=== PATIENT | male | born 1985 | race Caucasian/White ===

== ENCOUNTER 2016-07-31 20:35 | Emergency (ER) | payer BC, MEDICAID ==
[2016-07-31 21:36] LABS: Hematocrit 44.6 % (42.0-52.0); Hemoglobin 15.5 gm/dL (13.5-18.0); Mean Cell Volume 85.9 fl (78-100); Mean Corpuscular Hemoglobin 29.9 pg (27-31); Mean Corpuscular Hgb Conc 34.8 g/dl (32-36); Mean Platelet Volume 9.2 fl (6.0-9.5); Neutrophil # 5.2 K/mm3 (1.3-6.0); Neutrophil % 62.5 % (42-75.0); Platelet Count 270 K/mm3 (150-450); Red Blood Count 5.19 M/mm3 (4.7-6.0); Red Cell Distribution Width 13.1 % (11.5-14.0); White Blood Count 8.4 K/mm3 (4.0-10.5)
--- NOTE | 2016-07-31 21:37 | ERNOTE ---
Psychological HPI - General Chief Complaint: Psychiatric Problem Source: patient Exam Limitations: no limitations - Immun/Allergies/Home Medications Allergies/Adverse Reactions: Allergies No Known Allergies Allergy (Verified 12/14/12 01:12) Home Medications: HOME MEDICATIONS NK [No Home Medication] 07/31/16 [Last Taken Unknown] - History of Present Illness Narrative: Pt states has been on medications previously but lost contact with doctor when he was incarcerated. feeling more depressed and wanting to get back on medications. No suicidal ideations at this time Time Seen by Provider: 07/31/16 21:34 Arrived by: private car Onset/duration: gradual onset Intent: prior thoughts of suicide - - none at this time Situational Problems: work, legal problems Associated Symptoms: depressed Review of Systems - Review of Systems Constitutional: Absent: recent illness EYE: Present: no symptoms reported ENT: Present: no symptoms reported Respiratory: Present: no symptoms reported Cardiology: Present: no symptoms reported Gastrointestinal/Abdominal: Present: no symptoms reported Genitourinary: Present: no symptoms reported Musculoskeletal: Present: no symptoms reported Skin: Present: no symptoms reported Neurological: Present: anxiety, emotional problems Endocrine: Present: no symptoms reported Hematologic/Lymphatic: Present: no symptoms reported Psych: Present: no symptoms reported - Patient's Past Medical History Patient History - Medical: Anxiety, Depression Patient History - Cardiac/Respiratory: No pertinent hx Patient History - Cancer: No Hx of Cancer Patient History - Other: None - Social History Living Situations: home Abuse History: Hx of Substance Use, Hx -Substance Use Tx Psych History: Psychiatric Hx, Hx of Anxiety, Hx of Depression, Hx of Bipolar Disorder, Hx of Psychiatric Tx, Current tx/ever been on anti-depressants or anti -anxiety meds Smoking Status: Current every day smoker Have you smoked in the past 12 months: No Do you dip or chew tobacco: No Patient requests Smoking Cessation Consult: No Initiate information on Smoking Cessation: No Alcohol Use: occasionally Drug Use: marijuana, meth, other - Immunizations Immunizations Up to Date: No Hx Pneumococcal Vaccination: No History of Influenza Vaccine: No Physical Exam - Physical Exam General Appearance: Present: wd/wn, alert, no apparent distress, anxious Eye Exam: Normal inspection: bilateral, PERRL: bilateral, EOMI: bilateral Ears, Nose, Throat: Present: normal ENT inspection, hearing grossly normal Neck: Present: normal inspection, nontender Respiratory: Present: no respiratory distress, normal breath sounds, no accessory muscle use, lungs clear Cardiovascular/Chest: Present: regular rate, rhythm, no murmur, normal peripheral pulses Gastrointestinal/Abdominal: Present: normal bowel sounds, nontender, soft Back Exam: Present: normal range of motion Extremity Exam: Present: normal inspection, non-tender, no edema, normal range of motion Neurological Exam: Present: alert, oriented, normal mood/affect, no motor/ sensory deficits Skin Exam: Present: normal color, warm/dry Lymphatic Exam: Present: no adenopathy ED Progress - Results and Orders Patient's Lab Results:: I have reviewed the patient's lab results. Results and Orders: Laboratory Tests 07/31/16 07/31/16 07/31/16 21:20 21:20 22:12 WBC 8.4 Hgb 15.5 Hct 44.6 Plt Count 270 Sodium 139 Potassium 3.5 Chloride 103 Carbon Dioxide 29.6 Anion Gap 9.9 BUN 14 Creatinine 1.38 Est GFR (Non-Af Amer) 63 Random Glucose 104 Calcium 9.1 Total Bilirubin 0.6 AST 18 ALT 37 Alkaline Phosphatase 69 Total Protein 7.5 Albumin 3.8 TSH 1.339 Urine Color Yellow Urine Appearance Clear Urine pH 6.0 Ur Specific [place] 1.010 Urine Protein Negative Urine Glucose (UA) Negative Urine Ketones Negative Urine Blood Negative Urine Nitrate Negative Urine Bilirubin Negative Urine Urobilinogen Normal Ur Leukocyte Esterase Negative Urine RBC None seen Urine WBC None seen Ur Epithelial Cells None seen Urine Bacteria None seen Urine Culture Comments No culture indicated Salicylates 2.9 Urine Opiates Screen Acetaminophen Less than 0.2 L Barbiturate Screen Ur Phencyclidine Scrn Urine Amphetamine U Benzodiazepines Scrn Urine Cocaine Screen Urine Marijuana (THC) Ethyl Alcohol Less than 3.0 07/31/16 Unknown WBC Hgb Hct Plt Count Sodium Potassium Chloride Carbon Dioxide Anion Gap BUN Creatinine Est GFR (Non-Af Amer) Random Glucose Calcium Total Bilirubin AST ALT Alkaline Phosphatase Total Protein Albumin TSH Urine Color Urine Appearance Urine pH Ur Specific [place] Urine Protein Urine Glucose (UA) Urine Ketones Urine Blood Urine Nitrate Urine Bilirubin Urine Urobilinogen Ur Leukocyte Esterase Urine RBC Urine WBC Ur Epithelial Cells Urine Bacteria Urine Culture Comments Salicylates Urine Opiates Screen Negative Acetaminophen Barbiturate Screen Negative Ur Phencyclidine Scrn Negative Urine Amphetamine Positive H U Benzodiazepines Scrn Negative Urine Cocaine Screen Negative Urine Marijuana (THC) Positive H Ethyl Alcohol - Vital Signs Patient's Vital Signs:: I have reviewed the patient's vital signs. Vital Signs: Vital Signs 07/31/16 20:52 Temperature 36.7 C Pulse Rate 117 H Respiratory 14 Rate Blood Pressure 156/111 O2 Sat by Pulse 96 Oximetry - Progress/Reassessment Chief Complaint: Psychiatric Problem Progress Note-Subjective: 08/01/16 02:10 Pt was seen by [facility] social security assessor Cele Licona. She does not feel like he is an immediate threat to himself or others but that he has many at risk behaviors that he needs help with. He is willing to make contact tomorrow with [facility] on an OP basis Departure Clinical Impression: Anxiety Depression Qualifiers: Depression Type: reactive depression Qualified Code(s): F32.9 - Major depressive disorder, single episode, unspecified - Departure Disposition: Home Follow Up Needed Condition: Fair Instructions: Stimulant Use Disorder-Amphetamines, Finding Treatment for Addiction Additional Instructions: Call the crisis number if you need help after hours. Follow up with your regular doctor as soon as possible.
--- OUTSIDE RECORDS SUMMARY | 2016-07-31 21:49 | XMS REPORT | Continuity of Care Document ---
:1985 Author Organization [facility] ([facility]) Address [address] [place] [address] Phone [phone] Care Team Providers Name Role Phone Provider, No-Primary Care Primary Care Provider Unavailable Source Comments This disclosure is being made pursuant to the Care Everywhere program, applicable federal and state laws, and may not contain all informaitonavailable regarding this patient.[facility] ([facility]) Active Allergies and Adverse Reactions No Known Allergies Current Medications Prescription Sig. Disp. Refills Start Date End Date Status multivitamin capsule Take 1 Cap by Active mouth daily. lithium carbonate 300 mg Take 300 mg by Active capsule mouth 2 times daily with meals. FLUoxetine (PROZAC) 40 mg Take 40 mg by Active capsule mouth daily. Active Problems Problem Noted Date Multiple lipomas 04/20/2013 HLD (hyperlipidemia) 12/14/2012 Elevated serum creatinine 12/14/2012 Smoking 12/12/2012 Eye twitch 12/12/2012 Cyst, face 12/11/2012 Abnormal tympanic membrane 12/11/2012 Social History Tobacco Use Types Packs/Day Years Used Date Current Every Day Smoker Cigarettes 0.25 10 Smokeless Tobacco: Never Used Tobacco Cessation:Ready to Quit: No; Counseling Given: No Comments: Alcohol Use Drinks/Week oz/Week Comments Yes about 6 beers per month Last Filed Vital Signs Vital Sign Reading Time Taken Blood Pressure 153/92 01/07/2013 1:05 PM CDT Pulse 68 01/07/2013 1:05 PM CDT Temperature 36 C (96.8 F) 12/11/2012 2:33 PM CDT Respiratory Rate - - Height 1.93 m (6' 3.98") 01/07/2013 1:05 PM CDT Weight 121.564 kg (268 lb) 01/07/2013 1:05 PM CDT Body Mass Index 32.64 01/07/2013 1:05 PM CDT Oxygen Saturation - - Plan of Care Health Maintenance Due Date Last Done Comments Hepatitis B Vaccine (1 of 3 - Primary Series) 1985 Tdap Vaccine 1994 MMR Vaccine 2001 Td Vaccine 2001 Varicella Vaccine (1 of 2 - Adult - No Evidence of 2001 Immunity) Pneumococcal Vaccine (1 of 1 - PPSV23) 2002 Influenza Vaccine: Seasonal (#1) 01/22/2016 Lipid Disorder Screening 12/11/2017 12/11/2012 Results from Last 3 Months Not on file
[2016-07-31 21:50] LABS: ALT 37 U/L (19-67); AST 18 U/L (0-48); Albumin * 3.8 gm/dl (3.4-5.0); Alkaline Phosphatase * 69 U/L (50-170); Anion Gap 9.9 mmol/L (6.8-13.8); BUN/Creatinine Ratio 10.1 (9.0-21.6); Bilirubin, Total 0.6 mg/dL (0.0-1.1); Blood Urea Nitrogen 14 mg/dL (6-23); Ca. Corrected For Albumin 8.9 mg/dL (8.4-10.2); Calcium * 9.1 mg/dL (7.9-10.9); Carbon Dioxide 29.6 mmol/L (24-32.6); Chloride 103 mmol/L (97-106); Glucose * 104 mg/dL (70-110); Potassium 3.5 mmol/L (3.4-4.6); Salicylate 2.9 mg/dL (2.8-20.0); Sodium 139 mmol/L (132-142); TSH * 1.339 uIU/mL (0.358-3.74); Total Protein 7.5 gm/dL (6.2-8.2)
[2016-07-31 22:33] LABS: Urine Bilirubin Negative (NEGATIVE); Urine Blood Negative /ul (NEGATIVE); Urine Ketone Negative (NEGATIVE); Urine Nitrite Negative (NEGATIVE); Urine Protein Negative (NEGATIVE); Urine Urobilinogen Normal (NORMAL)
[2016-07-31 22:41] LABS: Urine Appearance Clear; Urine Bacteria None Seen; Urine Color Yellow; Urine RBC None Seen /hpf (0-5); Urine WBC None Seen /hpf (0-5)
[2016-07-31 22:50] LABS: Cocaine Ur Negative (NEGATIVE); Urine Barbiturate Negative (NEGATIVE); Urine Benzodiazepines Negative (NEGATIVE); Urine Opiates Negative (NEGATIVE); Urine PCP Negative (NEGATIVE)
[2016-07-31 22:51] LABS: Urine THC Positive (NEGATIVE)
[2016-08-01 03:40] VITALS: BP 145/98
== END 2016-08-01 02:25 | disposition home or self-care (01) ==
LOC: ER 20:35
DX: F41.9 Anxiety disorder, unspecified (principal); F32.9 Major depressive disorder, single episode, unspecified; F17.210 Nicotine dependence, cigarettes, uncomplicated
CPT/HCPCS: 36415; 80053; 80307; 80320; 81001; 84443; 85025; 99282; G0480